=== PATIENT | female | born 1960 | race Caucasian/White ===

== ENCOUNTER 2018-04-21 22:51 | Emergency (ER) | payer BC ==
--- NOTE | 2018-04-22 00:26 | EDM.PDOC ---
ED HPI GENERAL MEDICAL PROBLEM - General Chief Complaint: Gastrointestinal Problem Stated Complaint: DIVERTICULITIS FLARE Time Seen by Provider: 04/22/18 00:10 Source of Information: Reports: Patient, RN History Limitations: Reports: No Limitations - History of Present Illness INITIAL COMMENTS - FREE TEXT/NARRATIVE: 57 yo female from the [facility] presents with LUQ abdominal pain that she describes as sharp. Feels like she has had mild nausea and a low grade fever with it. Reminds her of prior episodes of diverticulitis. Does have some urinary frequency which is not typical for her. Sx's began yesterday and have progressed. Returning to the [facility] tomorrow. Is here alone after driving herself. Onset: Gradual Onset Date: 04/20/18 Duration: Day(s): (1+), Getting Worse Location: Reports: Abdomen Quality: Reports: Ache Severity: Moderate Improves with: Reports: Rest Worsens with: Reports: Movement (or coughing) Context: Reports: Other (PHx of diverticulitis) Associated Symptoms: Reports: Nausea/Vomiting (mild nausea, no vomiting). Denies: Fever/Chills Treatments [employer]ER: Reports: NSAIDS Right Lower Abdomen Pain Score (Numeric/FACES): 8 - Related Data Allergies Allergy/AdvReac Type Severity Reaction Status Date / Time hydrochlorothiazide Allergy Anaphylactic Verified 04/22/18 00:03 [From Dyazide] Shock Penicillins Allergy Anaphylactic Verified 04/22/18 00:03 Shock triamterene [From Dyazide] Allergy Anaphylactic Verified 04/22/18 00:03 Shock Home Meds: Home Meds Levothyroxine 200 mcg PO DAILY 04/22/18 [History] Past Medical History Gastrointestinal History: Reports: Diverticulosis, Other (See Below) Other Gastrointestinal History: diverticulitis flare ups. [employer] History: Reports: Endocrine/Metabolic History: Reports: Other (See Below) Other Endocrine/Metabolic History: On synthroid Oncologic (Cancer) History: Reports: Thyroid - Past Surgical History HEENT Surgical History: Reports: Tonsillectomy Female Surgical History: Reports: Hysterectomy Endocrine Surgical History: Reports: Parathyroidectomy, Thyroidectomy Social & Family History - Tobacco Use Smoking Status *Q: Never Smoker Second Hand Smoke Exposure: No - Caffeine Use Caffeine Use: Reports: Coffee - Recreational Drug Use Recreational Drug Use: No ED ROS GENERAL - Review of Systems Review Of Systems: See Below Constitutional: Reports: No Symptoms HEENT: Reports: No Symptoms Respiratory: Reports: No Symptoms Cardiovascular: Reports: No Symptoms GI/Abdominal: Reports: Abdominal Pain (LUQ), Nausea. Denies: Black Stool, Bloody Stool, Constipation, Diarrhea, Distension, Flatus, Hematemesis, Hematochezia, Melena, Vomiting : Reports: Frequency. Denies: Dysuria, Flank Pain, Hematuria, Incontinence, Pain, Urgency, Urinary Retention Musculoskeletal: Reports: No Symptoms Skin: Reports: No Symptoms Neurological: Reports: No Symptoms ED EXAM, GI/ABD - Physical Exam Exam: See Below Exam Limited By: No Limitations General Appearance: Alert, WD/WN, No Apparent Distress Eyes: Bilateral: Normal Appearance Ears: Normal External Exam, Normal Canal, Hearing Grossly Normal Nose: Normal Inspection, Normal Mucosa, No Blood Throat/Mouth: Normal Inspection, Normal Lips, Normal Oropharynx, Normal Voice, No Airway Compromise Head: Atraumatic, Normocephalic Neck: Normal Inspection Respiratory/Chest: No Respiratory Distress, Lungs Clear, Normal Breath Sounds, No Accessory Muscle Use Cardiovascular: Regular Rate, Rhythm, No Edema GI/Abdominal Exam: Normal Bowel Sounds, Soft, Tender (LUQ). No: Non-Tender, No Distention, Distended, Guarding, Rigid, Rebound, Hernia Back Exam: Normal Inspection. No: CVA Tenderness (R), CVA Tenderness (L) Extremities: Normal Inspection, Normal Range of Motion, Non-Tender, No Pedal Edema Neurological: Alert, Oriented, CN II-XII Intact, Normal Cognition, No Motor/ Sensory Deficits Psychiatric: Normal Affect, Normal Mood Skin Exam: Warm, Dry, Intact, Normal Color, No Rash Lymphatic: No Adenopathy Course - Vital Signs Last Recorded V/S: Last Vital Signs Temp 36.8 C 04/21/18 23:52 Pulse 88 04/21/18 23:52 Resp 16 04/21/18 23:52 BP 154/98 H 04/21/18 23:52 Pulse Ox 96 04/21/18 23:52 - Orders/Labs/Meds Orders: Active Orders 24 hr Category Date Time Status BASIC METABOLIC PANEL,BMP [CHEM] Stat Lab 04/22/18 00:43 Ordered UA W/MICROSCOPIC [URIN] Stat Lab 04/22/18 00:18 Ordered Labs: Laboratory Tests 04/22/18 04/22/18 Range/Units 00:15 00:18 WBC 10.2 (4.5-11.0) K/uL RBC 5.32 (3.30-5.50) M/uL Hgb 14.8 (12.0-15.0) g/dL Hct 45.4 (36.0-48.0) % MCV 85 (80-98) fL MCH 28 (27-31) pg MCHC 33 (32-36) % Plt Count 334 (150-400) K/uL Urine Color Yellow Urine Appearance Clear Urine pH 7.0 (4.5-8.0) Ur Specific [place] 1.015 (1.008-1.030) Urine Protein Negative (NEGATIVE) mg/dL Urine Glucose (UA) Normal (NEGATIVE) mg/dL Urine Ketones Negative (NEGATIVE) mg/dL Urine Occult Blood Negative (NEGATIVE) Urine Nitrite Negative (NEGATIVE) Urine Bilirubin Negative (NEGATIVE) Urine Urobilinogen Normal (NORMAL) mg/dL Ur Leukocyte Esterase Negative (NEGATIVE) Urine RBC 0-5 (0-5) Urine WBC 0-5 (0-5) Ur Epithelial Cells Few Amorphous Sediment Not seen Urine Bacteria Few Urine Mucus Not seen Meds: Medications Discontinued Medications Generic Name Dose Route Start Last Admin Trade Name Freq PRN Reason Stop Dose Admin Ondansetron HCl 4 mg 04/22/18 00:39 04/22/18 00:41 Zofran Odt PO 04/22/18 00:40 4 mg ONETIME ONE Administration Ondansetron HCl Confirm 04/22/18 00:39 Zofran Odt Administered 04/22/18 00:40 Dose 4 mg .ROUTE .STK-MED ONE Departure - Departure Time of Disposition: 00:46 Disposition: Home, Self-Care 01 Condition: Fair Clinical Impression: LUQ abdominal pain, Nausea - Discharge Information Referrals: PCP,None [Primary Care Provider] - Forms: ED Department Discharge - My Orders Last 24 Hours: My Active Orders 04/22/18 00:18 UA W/MICROSCOPIC [URIN] Stat 04/22/18 00:43 BASIC METABOLIC PANEL,BMP [CHEM] Stat - Assessment/Plan Last 24 Hours: My Active Orders 04/22/18 00:18 UA W/MICROSCOPIC [URIN] Stat 04/22/18 00:43 BASIC METABOLIC PANEL,BMP [CHEM] Stat
[2018-04-22] MEDS ORDERED: Ondansetron 4 MG Tab.DIS PO ONE (00:39)
[2018-04-22] MEDS ORDERED: Ondansetron 4 MG Tab.DIS ONE (00:39)
== END 2018-04-22 01:04 | disposition home or self-care (01) ==
LOC: JP.ED 22:51
DX: R10.12 Left upper quadrant pain (principal); R11.0 Nausea; Z88.0 Allergy status to penicillin; Z88.8 Allergy status to other drugs, medicaments and biological substances
CPT/HCPCS: 36415; 80048; 81001; 85027; 99284; A9270